=== PATIENT | female | born 1960 | race Caucasian/White ===

== ENCOUNTER 2020-06-30 13:14 | Emergency (ER) | payer MEDICAID ==
[~2020-06-30] VITALS: Ht 154.9 cm; Wt 68.0 kg
[~2020-06-30 13:14] MED LIST: CLON1TAB12 PO; LURA40TA2 PO; LURA80TA2 PO; OLAN10TA3 PO; OLAN20TA2 PO; OXCA600T19 PO; PALI6TAB15 PO; ZOLP5TAB2 PO
[2020-06-30] MEDS ORDERED: SODIUM CHLORIDE 0.9% 1,000 ML IV ONE (14:15)
[2020-06-30 14:37] LABS: BASOPHILS % (AUTO) 0.5 % (0.0-2.0); EOSINOPHILS % (AUTO) 3.5 % (1.0-6.0); HEMATOCRIT 41.1 % (36-46); HEMOGLOBIN 13.5 g/dL (12.0-16.0); LYMPHOCYTES # (AUTO) 1.9 K/uL (1.0-4.8); LYMPHOCYTES % (AUTO) 25.2 % (22.0-44.0); MEAN CORPUSCULAR HEMOGLOBIN 30.9 pg (26.0-34.0); MEAN CORPUSCULAR HGB CONC 32.8 G/dL (31.0-37.0); MEAN CORPUSCULAR VOLUME 94 fL (80-100); MONOCYTES # (AUTO) 0.8 K/uL (0.1-1.0); MONOCYTES % (AUTO) 10.6 % (2.0-9.0); NEUTROPHILS # (AUTO) 4.5 K/uL (1.8-7.7); NEUTROPHILS % (AUTO) 60.2 % (40.0-70.0); PLATELET COUNT (AUTO) 271 K/uL (150-450); RED BLOOD CELL COUNT(AUTO) 4.36 MIL/uL (4.00-5.20); RED CELL DISTRIBUTION WIDTH 12.9 % (11.5-14.5)
[2020-06-30 14:52] LABS: ANION GAP 2 mmol/L (8-16); CALCIUM, TOTAL 8.8 mg/dL (8.8-10.5); CARBON DIOXIDE 32 mmol/L (22-29); CHLORIDE 103 mmol/L (98-107); CREATININE 0.85 mg/dL (0.60-1.30); GLOMERULAR FILTR. RATE CALC > 60 mL/min (>60); GLUCOSE,RANDOM 87 mg/dL (70-110); POTASSIUM 3.5 mmol/L (3.5-5.1); SODIUM SERUM 137 mmol/L (136-145); UREA NITROGEN, BLOOD 10 mg/dL (7-18)
[2020-06-30 14:58] LABS: ALANINE AMINOTRANSFERASE 32 U/L (12-78); ALBUMIN 3.5 g/dL (3.4-5.0); ALKALINE PHOSPHATASE 60 U/L (46-116); ASPARTATE AMINOTRANSFERASE 14 U/L (15-37); BILIRUBIN,TOTAL 0.2 mg/dL (0.1-1.0); TOTAL PROTEIN, SERUM 7.1 g/dL (6.4-8.2)
[2020-06-30 15:45] VITALS: BP 124/79
[2020-06-30] MEDS ORDERED: PERMETHRIN 1% 60 ML LOTION TP ONE (16:30)
== END 2020-06-30 17:18 | disposition home or self-care (01) ==
LOC: EMS 13:18
DX: E86.0 Dehydration (principal); R06.02 Shortness of breath; R07.9 Chest pain, unspecified; F31.9 Bipolar disorder, unspecified; J44.9 Chronic obstructive pulmonary disease, unspecified; F20.9 Schizophrenia, unspecified; F17.210 Nicotine dependence, cigarettes, uncomplicated; F12.90 Cannabis use, unspecified, uncomplicated; Z88.8 Allergy status to other drugs, medicaments and biological substances
CPT/HCPCS: 93005; 96360; 36415-L1; 36415-TC

== ENCOUNTER 2023-07-16 10:28 | Emergency (ER) | payer MEDICAID ==
[~2023-07-16] VITALS: Ht 154.9 cm; Wt 65.9 kg
[~2023-07-16 10:28] MED LIST changes: -OLAN10TA3 PO; +OLAN10TA74 PO
[2023-07-16 10:42] VITALS: BP 125/71; PULSE 108; RESP 18; TEMP 98.6
[2023-07-16] MEDS ORDERED: PERMETHRIN 5% 60 GM CREAM TP ONE (12:30)
[2023-07-16] MEDS ORDERED: PERMETHRIN 1% 60 ML LOTION TP ONE (12:45)
== END 2023-07-16 13:12 | disposition home or self-care (01) ==
LOC: EMS 10:34
DX: B85.0 Pediculosis due to Pediculus humanus capitis (principal); F31.9 Bipolar disorder, unspecified; J44.9 Chronic obstructive pulmonary disease, unspecified; F20.9 Schizophrenia, unspecified; F17.210 Nicotine dependence, cigarettes, uncomplicated; F12.90 Cannabis use, unspecified, uncomplicated; Z88.8 Allergy status to other drugs, medicaments and biological substances
CPT/HCPCS: 99282; Z7502; Z7610